=== PATIENT | female | born 1980 | race Caucasian/White ===

== ENCOUNTER 2018-12-18 17:14 | Emergency (ER) | payer BC, OTHER ==
[2018-12-18] MEDS ORDERED: Mag-Al Plus 1200 MG/1200 MG/120 MG/30 ML UDCUP ONE (17:35)
[2018-12-18] MEDS ORDERED: Aspirin Chewable 81 MG TAB ONE (17:35)
[2018-12-18 17:54] LABS: #Basophils 0.1 thou/uL (0.0-0.2); #Eosinphils 0.5 thou/uL (0.0-0.7); #Monocytes 1.1 thou/uL (0.11-0.59); #Neutrophils 9.9 thou/uL (1.40-6.50); %Basophils 0.8 % (0.0-1.0); %Eosinophils 3.2 % (0.0-10.0); %Lymphocytes 20.6 % (21.0-51.0); %Monocytes 7.4 % (0.0-10.0); Hemoglobin 13.4 g/dL (12.0-16.0); Mean Corpuscular HGB CONC 31.7 g/dL (32.0-36.0); Mean Corpuscular Hemoglobin 30.3 pg (27.0-31.0); Mean Corpuscular Volume 95.8 fL (78.0-98.0); Platelet Count 161 thou/uL (130-400); RBC Distribution Width 11.9 % (11.5-14.5); Red Blood Cell (RBC) Count 4.43 mill/uL (4.20-5.40); White Blood Cell (WBC) Count 14.6 thou/uL (4.8-10.8)
[2018-12-18 18:10] LABS: ALT (SGPT) 17 U/L (8-55); AST (SGOT) 23 U/L (5-34); Albumin 4.4 g/dL (3.5-5.0); Alkaline Phosphatase 90 U/L (40-150); Anion Gap 14 mmol/L (10-20); BUN (Urea Nitrogen) 16 mg/dL (7.0-18.7); Bilirubin, Total 0.3 mg/dL (0.2-1.2); CK (CPK) 265 U/L (29-168); Calc. Creatinine Clearance 0 mL/min (70-130); Calcium 9.6 mg/dL (7.8-10.44); Carbon Dioxide 25 mmol/L (22-29); Chloride 104 mmol/L (98-107); Estimated GFR-MDRD Greater than 90; Globulin 2.8 g/dL (2.4-3.5); Glucose 104 mg/dL (70-105); Lipase 44 U/L (8-78); Potassium 3.9 mmol/L (3.5-5.1); Protein, Total 7.2 g/dL (6.0-8.3); Sodium 139 mmol/L (136-145)
--- NOTE | 2018-12-18 22:39 | RAD ---
PORTABLE CHEST: Date: 12-18-18 FINDINGS: An AP portable film at 1734 shows a normal sized heart and clear lungs. There is no infiltrate, effus ion, or congestion. The mediastinum appears normal. No cause for chest pain was seen. IMPRESSION: No acute thoracic finding. POS: HOME
== END 2018-12-18 18:38 | disposition home or self-care (01) ==
LOC: BURERS 17:14
DX: R07.89 Other chest pain (principal); F41.9 Anxiety disorder, unspecified
CPT/HCPCS: 36415; 71045; 80053; 82550; 83690; 84484; 85025; 93005

== ENCOUNTER 2021-11-13 10:45 | Emergency (ER) | payer BC, OTHER | END 2021-11-13 11:17 | disposition home or self-care (01) | LOC: BURERS 10:45 | DX: R07.9 Chest pain, unspecified (principal); K21.9 Gastro-esophageal reflux disease without esophagitis ==

== ENCOUNTER 2023-09-20 08:59 | Outpatient (CLI) | payer BC | END 2023-09-20 09:00 | disposition home or self-care (01) | LOC: BURRAD 08:59 | PROVIDERS: ATTEND Physician Assistant | DX: M25.571 Pain in right ankle and joints of right foot (principal) ==